=== PATIENT | male | born 1975 | race Asian ===

== ENCOUNTER 2016-07-24 17:41 | Emergency (ER) | payer OTHER ==
[~2016-07-24] VITALS: Ht 175.3 cm; Wt 79.4 kg
== END 2016-07-24 19:01 | disposition home or self-care (01) ==
LOC: ED 17:41
DX: S02.2XXA Fracture of nasal bones, initial encounter for closed fracture (principal); W20.8XXA Other cause of strike by thrown, projected or falling object, initial encounter; Y93.64 Activity, baseball
CPT/HCPCS: 99282